=== PATIENT | female | born 1995 | race Caucasian/White ===

== ENCOUNTER 2017-06-12 05:13 | Inpatient (IN) | payer OTHER ==
[2017-06-12 06:19] LABS: ADD MAN DIFF? NO
[2017-06-12 06:20] LABS: BASOPHILS % 0.2 % (0.0-2.0); EOSINOPHILS # 0.1 10^3/ul (0.0-0.5); EOSINOPHILS % 0.6 % (0.0-7.0); HEMOGLOBIN 11.8 g/dl (12.0-16.0); LYMPHOCYTES # 1.2 10^3/ul (0.8-2.9); LYMPHOCYTES % 12.4 % (15.0-51.0); MEAN CORPUSCULAR HEMOGLOBIN 31.7 pg (29.0-33.0); MEAN CORPUSCULAR HGB CONC 34.7 g/dl (32.0-37.0); MEAN CORPUSCULAR VOLUME 91.4 fl (82.0-101.0); MEAN PLATELET VOLUME 9.9 fl (7.4-10.4); MONOCYTE # 0.8 10^3/ul (0.3-0.9); MONOCYTES % 8.4 % (0.0-11.0); NEUTROPHIL # 7.2 10^3/ul (1.6-7.5); NEUTROPHILS % 77.8 % (39.0-77.0); PLATELET COUNT 235 10^3/UL (140-415); RED BLOOD COUNT 3.72 10^6/ul (4.20-5.40); RED CELL DISTRIBUTION WIDTH 12.8 % (11.5-14.5)
[2017-06-12 06:20] LABS: WHITE BLOOD COUNT 9.3 10^3/ul (4.8-10.8)
[2017-06-12] MEDS: CEFAZOLIN 2 GM/50 ML (PMX) 50 ML IVPB (06:40)
[2017-06-12] MEDS: LACTATED RINGER'S 1,000 ML IV ×2 (06:40→16:50)
[2017-06-12 06:49] LABS: ADD UMIC YES; UR AMORPHOUS CRYSTAL FEW /HPF (NONE SEEN); UR ASCORBIC ACID NEGATIVE (NEGATIVE); UR BACTERIA FEW /HPF (NONE SEEN); UR BILIRUBIN (Dip) NEGATIVE (NEGATIVE); UR BLOOD (Dip) 1+ mg/dL (NEGATIVE); UR CLARITY CLOUDY (CLEAR); UR COLOR YELLOW (YELLOW); UR GLUCOSE (Dip) NEGATIVE (NEGATIVE); UR KETONES (Dip) NEGATIVE (NEGATIVE); UR LEUKOCYTE ESTERASE (Dip) 3+ Leu/ul (NEGATIVE); UR MUCUS FEW /HPF (NONE SEEN); UR NITRITE (Dip) POSITIVE (NEGATIVE); UR NONSQUAMOUS EPITHELIAL CELL 1 /HPF (NONE SEEN); UR RBC 22 /HPF (0-5); UR SPECIFIC GRAVITY (Dip) 1.013 (1.003-1.030); UR SQUAMOUS EPITHELIAL CELL MODERATE /HPF (FEW); UR TOTAL PROTEIN (Dip) 2+ mg/dl (NEGATIVE); UR UROBILINOGEN (Dip) NEGATIVE (NEGATIVE); UR WBC 114 /HPF (0-5)
[2017-06-12] MEDS: BUTORPHANOL 2 MG INJ IV (08:07)
[2017-06-12] MEDS: SOD CHLORIDE 0.9% 1,000 ML IV ×2 (08:15→16:50)
[2017-06-12 08:50] LABS: CANNABINOIDS Positive (NEGATIVE)
[2017-06-12 08:54] LABS: AMPHETAMINE/METHAMPHETAMINE Negative (NEGATIVE); BARBITURATES Negative (NEGATIVE); BENZODIAZEPINES Negative (NEGATIVE); COCAINE Negative (NEGATIVE); OPIATES Negative (NEGATIVE)
[2017-06-12] MEDS ORDERED: CEFTRIAXONE 1 GM INJ IVPB (09:00)
[2017-06-12] MEDS: CEFTRIAXONE 1 GM/NS 50 ML IVPB ×2 (10:22→22:30)
[2017-06-12] MEDS ORDERED: ACETAMINOPHEN 325 MG TAB PO (10:30)
[2017-06-12 16:23] LABS: CREATININE 0.43 mg/dl (0.44-1.00)
[2017-06-12] MEDS: ACETAMINOPHEN 325 MG TAB PO ×2 (16:54→21:27)
[2017-06-13] MEDS: SOD CHLORIDE 0.9% 1,000 ML IV ×3 (02:27→18:19)
[2017-06-13] MEDS: ACETAMINOPHEN 325 MG TAB PO ×4 (04:06→18:34)
[2017-06-13] MEDS: CEFTRIAXONE 1 GM/NS 50 ML IVPB ×2 (09:22→21:47)
[2017-06-13] MEDS: GENTAMICIN 80 MG/NS (PMX) 50 ML IVPB ×2 (12:41→20:54)
[2017-06-13] MEDS: AL HYDROX/MG HYDROX/SIMETH 30 ML CUP PO (14:18)
[2017-06-14] MEDS: SOD CHLORIDE 0.9% 1,000 ML IV ×4 (02:00→23:46)
[2017-06-14] MEDS: GENTAMICIN 80 MG/NS (PMX) 50 ML IVPB ×3 (04:17→21:33)
[2017-06-14] MEDS: ACETAMINOPHEN 325 MG TAB PO ×3 (07:44→18:29)
[2017-06-14] MEDS: CEPASTAT LOZENGE MT (09:01)
[2017-06-14] MEDS: CEFTRIAXONE 1 GM/NS 50 ML IVPB ×2 (09:06→20:38)
[2017-06-14] MEDS: ACETAMINOPHEN 500 MG TAB PO (20:38)
[2017-06-15] MEDS: ACETAMINOPHEN 500 MG TAB PO ×2 (04:59→19:58)
[2017-06-15] MEDS: GENTAMICIN 80 MG/NS (PMX) 50 ML IVPB ×2 (05:00→12:51)
[2017-06-15] MEDS: SOD CHLORIDE 0.9% 1,000 ML IV ×2 (08:00→17:46)
[2017-06-15] MEDS: CEFTRIAXONE 1 GM/NS 50 ML IVPB (09:22)
[2017-06-15 09:41] LABS: ADD MAN DIFF? NO
[2017-06-15 09:44] LABS: WHITE BLOOD COUNT 5.3 10^3/ul (4.8-10.8)
[2017-06-15 09:44] LABS: BASOPHILS % 0.4 % (0.0-2.0); EOSINOPHILS # 0.1 10^3/ul (0.0-0.5); EOSINOPHILS % 2.3 % (0.0-7.0); HEMATOCRIT 31.8 % (37.0-47.0); HEMOGLOBIN 10.9 g/dl (12.0-16.0); LYMPHOCYTES # 1.3 10^3/ul (0.8-2.9); LYMPHOCYTES % 24.1 % (15.0-51.0); MEAN CORPUSCULAR HEMOGLOBIN 31.5 pg (29.0-33.0); MEAN CORPUSCULAR HGB CONC 34.3 g/dl (32.0-37.0); MEAN CORPUSCULAR VOLUME 91.9 fl (82.0-101.0); MONOCYTE # 0.5 10^3/ul (0.3-0.9); MONOCYTES % 8.6 % (0.0-11.0); NEUTROPHIL # 3.4 10^3/ul (1.6-7.5); NEUTROPHILS % 63.8 % (39.0-77.0); PLATELET COUNT 234 10^3/UL (140-415); RED BLOOD COUNT 3.46 10^6/ul (4.20-5.40); RED CELL DISTRIBUTION WIDTH 12.7 % (11.5-14.5)
[2017-06-15] MEDS: PRENATAL VITAMIN PO (12:57)
[2017-06-15] MEDS: NITROFURANTOIN (SR) 100 MG CAP PO (21:07)
[2017-06-16] MEDS: SOD CHLORIDE 0.9% 1,000 ML IV (02:04)
[2017-06-16] MEDS: PRENATAL VITAMIN PO (08:46)
[2017-06-16] MEDS: NITROFURANTOIN (SR) 100 MG CAP PO (08:46)
[2017-06-16] MEDS: ACETAMINOPHEN 500 MG TAB PO (08:46)
== END 2017-06-16 17:22 | disposition home or self-care (01) | DRG 781 ==
LOC: OBT 05:13 → L-D 05:13 → OBT 07:51 → L-D 07:40 → PP1 16:33
PROVIDERS: Obstetrics & Gynecology
DX: O23.02 Infections of kidney in pregnancy, second trimester (principal); B96.20 Unspecified Escherichia coli [E. coli] as the cause of diseases classified elsewhere; Z3A.20 20 weeks gestation of pregnancy
CPT/HCPCS: 76775; 76815; 76817; 80307; 81001; 82565; 85025; 87086; 96360; 96365

== ENCOUNTER 2017-06-26 11:16 | Inpatient (IN) | payer OTHER ==
[2017-06-26 13:10] LABS: ADD UMIC NO; UR ASCORBIC ACID NEGATIVE (NEGATIVE); UR BACTERIA FEW /HPF (NONE SEEN); UR BILIRUBIN (Dip) NEGATIVE (NEGATIVE); UR BLOOD (Dip) NEGATIVE (NEGATIVE); UR CLARITY SLIGHTLY CLOUDY (CLEAR); UR COLOR YELLOW (YELLOW); UR GLUCOSE (Dip) 1+ mg/dL (NEGATIVE); UR KETONES (Dip) NEGATIVE (NEGATIVE); UR LEUKOCYTE ESTERASE (Dip) NEGATIVE Leu/ul (NEGATIVE); UR MUCUS FEW /HPF (NONE SEEN); UR NITRITE (Dip) NEGATIVE (NEGATIVE); UR RBC 2 /HPF (0-5); UR SPECIFIC GRAVITY (Dip) 1.026 (1.003-1.030); UR SQUAMOUS EPITHELIAL CELL MODERATE /HPF (FEW); UR TOTAL PROTEIN (Dip) NEGATIVE (NEGATIVE); UR UROBILINOGEN (Dip) NEGATIVE (NEGATIVE); UR WBC 7 /HPF (0-5)
[2017-06-26] MEDS ORDERED: metroNIDAZOLE 500 MG TAB PO (17:00)
[2017-06-26] MEDS: PIPER-TAZO 3.375 GM IV (PMX) 100 ML IVPB (17:39)
[2017-06-26] MEDS: metroNIDAZOLE 500 MG TAB PO ×2 (17:39→22:20)
[2017-06-26] MEDS: LACTATED RINGER'S 1,000 ML IV (17:39)
[2017-06-26] MEDS: CLOTRIMAZOLE 1% 45 GM VAG CR VAG (22:20)
[2017-06-27] MEDS: LACTATED RINGER'S 1,000 ML IV ×2 (02:24→13:52)
[2017-06-27] MEDS: PIPER-TAZO 3.375 GM IV (PMX) 100 ML IVPB ×3 (02:24→18:16)
[2017-06-27] MEDS: CLOTRIMAZOLE 1% 45 GM VAG CR VAG (05:30)
[2017-06-27] MEDS: metroNIDAZOLE 500 MG TAB PO ×2 (08:35→21:27)
[2017-06-27] MEDS: PRENATAL VITAMIN PO (08:36)
[2017-06-28] MEDS: SOD CHLORIDE 0.9% 1,000 ML IV (00:22)
[2017-06-28] MEDS ORDERED: SOD CHLORIDE 0.9% 1,000 ML IV (00:30)
[2017-06-28] MEDS: PIPER-TAZO 3.375 GM IV (PMX) 100 ML IVPB ×2 (02:14→10:33)
[2017-06-28] MEDS: ACETAMINOPHEN 325 MG TAB PO (05:12)
[2017-06-28] MEDS: AL HYDROX/MG HYDROX/SIMETH 30 ML CUP PO (05:32)
[2017-06-28] MEDS: metroNIDAZOLE 500 MG TAB PO (09:50)
[2017-06-28] MEDS: PRENATAL VITAMIN PO (09:50)
== END 2017-06-28 14:30 | disposition home or self-care (01) | DRG 781 ==
LOC: OBT 11:16 → L-D 11:17 → OBT 16:00 → L-D 16:00
DX: O23.42 Unspecified infection of urinary tract in pregnancy, second trimester (principal); O26.892 Other specified pregnancy related conditions, second trimester; M54.30 Sciatica, unspecified side; Z3A.22 22 weeks gestation of pregnancy
CPT/HCPCS: 76775; 76817; 76818; 81001; 81003; 87081; 87086; 93970